=== PATIENT | female | born 1955 | race Caucasian/White ===

== ENCOUNTER 2021-10-12 08:22 | Emergency (ER) | payer MEDICARE ==
[~2021-10-12] VITALS: Ht 170.2 cm; Wt 65.4 kg
[~2021-10-12 08:22] MED LIST: ACTONEL5 MG PO; ASPIRIN LOW DOS81 M2 PO; AUGMENTIN875TAB PO; CALCIUM 6001 TAB PO; CIPRO XR500 MG PO; CO Q-10100 MG PO; GABAPENTIN300 MG PO; GNP OMEPRAZOLE20 MG PO; PROVENTIL HFA IN; SIMVASTATIN10 MG PO; SPIRIVA IN
[2021-10-12 08:30] VITALS: BP 141/80
[2021-10-12 08:45] VITALS: BP 135/80
[2021-10-12 08:47] LABS: HEMOGLOBIN 13.8 g/dl (12.0-16.0); IMMATURE GRANULOCYTES 0.2 % (0.0-5.0); MEAN CELL VOLUME 92.3 fL CALC (80.0-100.0); MEAN CORPUSCULAR HGB 30.2 pG CALC (26.0-32.0); MEAN CORPUSCULAR HGB CONC 32.7 g/dL CAL (32.0-36.0); NEUT# 3.74 thou/uL (2.00-7.15); RED BLOOD COUNT 4.57 mill/uL (4.20-5.60); RED CELL DISTRI WIDTH 13.1 % (11.5-15.5)
[2021-10-12 09:00] VITALS: BP 150/99
[2021-10-12 09:05] LABS: ALBUMIN 4.2 g/dL (3.2-5.0); ALKALINE PHOSPHATASE 60 u/l (38-126); ANION GAP 11 (6-22 (CALC)); BILIRUBIN, TOTAL 0.4 mg/dL (0.0-1.4); BUN 11 mg/dL (8-23); BUN/CREATININE RATIO 15 (12-20 (CALC)); CARBON DIOXIDE 25 mmol/l (22-30); CHLORIDE 108 mmol/l (95-108); CREATININE 0.7 mg/dL (0.5-1.0); GFR > 60 ML/MIN (>=60 (CALC)); GFR FOR AFR.AMER. > 60 ML/MIN (>=60 (CALC)); POTASSIUM 3.8 mmol/l (3.5-5.1); SGOT/AST 16 u/l (9-36); SODIUM 140 mmol/l (137-146)
[2021-10-12] MEDS ORDERED: BREO ELLIPTA 101 INH (09:14)
[2021-10-12 09:20] LABS: HEMATOCRIT 42.2 % (37.0-47.0)
[2021-10-12 12:34] VITALS: BP 150/99
== END 2021-10-12 12:52 | disposition home or self-care (01) ==
LOC: ED 08:22
PROVIDERS: Family Medicine
DX: N64.4 Mastodynia (principal); I10 Essential (primary) hypertension; F17.200 Nicotine dependence, unspecified, uncomplicated